=== PATIENT | female | born 1975 | race Caucasian/White ===

== ENCOUNTER 2018-03-04 09:13 | Outpatient (CLI) | payer OTHER | END 2018-03-04 17:00 | disposition home or self-care (01) | LOC: MRI 09:13 | DX: D25.2 Subserosal leiomyoma of uterus (principal); N60.11 Diffuse cystic mastopathy of right breast; N60.12 Diffuse cystic mastopathy of left breast; Z12.31 Encounter for screening mammogram for malignant neoplasm of breast | CPT/HCPCS: 72197 ==

== ENCOUNTER 2019-05-16 11:41 | Outpatient (CLI) | payer OTHER | END 2019-05-16 11:45 | disposition home or self-care (01) | LOC: MAMO-SONO 11:41 | DX: N60.11 Diffuse cystic mastopathy of right breast (principal); N60.12 Diffuse cystic mastopathy of left breast; Z12.31 Encounter for screening mammogram for malignant neoplasm of breast ==

== ENCOUNTER 2021-01-10 09:28 | Outpatient (CLI) | payer OTHER | END 2021-01-10 09:42 | disposition home or self-care (01) | LOC: MAMO-SONO 09:28 | PROVIDERS: ATTEND Obstetrics & Gynecology | DX: N60.11 Diffuse cystic mastopathy of right breast (principal); N60.12 Diffuse cystic mastopathy of left breast ==